=== PATIENT | male | born 1955 | race African-American/Black ===

== ENCOUNTER 2017-05-09 02:15 | Emergency (ER) | payer OTHER ==
[2017-05-09 02:32] VITALS: TEMP 97.7
--- NOTE | 2017-05-09 03:56 | EDPHY ---
H & P Stated Complaint: cold and concerned with blood sugar Time Seen by Provider: 05/09/17 03:37 HPI/ROS: HPI The patient presents brought in by ambulance for concern for hypothermia. The patient was found sleeping on a bench and was found by police. He was transferred here for further evaluation. The patient said both his hands and feet felt very cold to him. He was wearing boots but did not have any gloves on his hands. He reports that he has diabetic neuropathy and was concerned that his blood sugar could be elevated as well. He recently relocated here from [place] and was not familiar where the local shelters were so he thought he would sleep on a park bench tonight. REVIEW OF SYSTEMS Constitutional: No fever, no chills. Eyes: No discharge. ENT: No sore throat. Cardiovascular: No chest pain, no palpitations. Respiratory: No cough, no shortness of breath. Gastrointestinal: No abdominal pain, no vomiting. Genitourinary: No hematuria. Musculoskeletal: No back pain. Skin: No rashes. Neurological: No headache. PMHx: Type 2 diabetes, hypertension Soc Hx: Homeless PHYSICAL General Appearance: Alert, no distress Eyes: Pupils equal and round no pallor or injection ENT, Mouth: Mucous membranes moist Respiratory: There are no retractions, lungs are clear to auscultation Cardiovascular: Regular rate and rhythm Gastrointestinal: Abdomen is soft and non-tender, no masses, bowel sounds normal Neurological: A&O, moves all extremities Skin: Warm and dry, no rashes Musculoskeletal: Neck is supple non tender Extremities: symmetrical, full range of motion Psychiatric: Patient is oriented X 3, there is no agitation Source: Patient, EMS - Personal History Current Tetanus/Diphtheria Vaccine: Yes Current Tetanus Diphtheria and Acellular Pertussis (TDAP): Yes - Medical/Surgical History Hx Asthma: No Hx Chronic Respiratory Disease: No Hx Diabetes: Yes Hx Cardiac Disease: No Hx Renal Disease: No Hx Cirrhosis: No Hx Alcoholism: Yes Hx HIV/AIDS: No Hx Splenectomy or Spleen Trauma: No Other PMH: dm. htn \. rectal fistula - Social History Smoking Status: Current some day smoker Constitutional: Initial Vital Signs Temperature (C) 36.5 C 05/09/17 02:29 Heart Rate 94 05/09/17 02:29 Respiratory Rate 18 05/09/17 02:29 Blood Pressure 166/116 H 05/09/17 02:29 O2 Sat (%) 96 05/09/17 02:29 O2 Delivery Mode Room Air Allergies/Adverse Reactions: peanut Allergy (Verified 05/09/17 02:27) Home Medications: Medication Instructions Recorded Amlodipine Besylate 05/09/17 Fluticasone Hfa 110 Mcg 05/09/17 Hydrochlorothiazide 05/09/17 Hydroxyzine HCl 05/09/17 Lasix 05/09/17 Lisinopril 05/09/17 Metformin HCl 05/09/17 Medical Decision Making Differential Diagnosis: 61-year-old homeless male presents brought in by ambulance feeling cold and concerned that his blood glucose is elevated. On exam, his temperature is normal. His extremities are warm and well perfused, his blood glucose is checked and is in the 100 range. I feel he is well enough to be discharged from the emergency department and I have explained this to him. He is happy with this plan. - Data Points Laboratory Results: 05/09/17 02:22 POC Glucose 119 mg/dL H mg/dL (70-100) Point of Care Test Results: 05/09/17 02:22 POC Glucose 119 H Departure - Departure Disposition: Home, Routine, Self-Care Clinical Impression: Homelessness Cold exposure Qualifiers: Encounter type: initial encounter Qualified Code(s): T69.9XXA - Effect of reduced temperature, unspecified, initial encounter Condition: Good Instructions: Diabetic Hyperglycemia (ED) Referrals: NEY HUNT [Other] - As per Instructions
[2017-05-09 04:23] VITALS: BP 146/89; PULSE 74; RESP 16; O2SAT 94
== END 2017-05-09 04:23 | disposition home or self-care (01) ==
DX: T69.9XXA Effect of reduced temperature, unspecified, initial encounter (principal); I10 Essential (primary) hypertension; E11.9 Type 2 diabetes mellitus without complications; F17.200 Nicotine dependence, unspecified, uncomplicated; Z59.0 Homelessness; Z91.010 Allergy to peanuts; Z79.84 Long term (current) use of oral hypoglycemic drugs; X31.XXXA Exposure to excessive natural cold, initial encounter